=== PATIENT | male | born 1970 | race Caucasian/White ===

== ENCOUNTER → 2018-06-10 | Outpatient (CLI) | payer OTHER ==
[~2018-06-10] MED LIST: ACET65TA OR; NORCO ANEXSIA PO
--- NOTE | 2018-06-10 13:55 | REP ---
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 Technique: Daniels scale and color Doppler evaluation using linear high frequency transducer Findings: Two-dimensional daniels scale and color images demonstrate age-related atheromatous plaquing along the common carotid arteries with normal laminar flow and no appreciable narrowing. Color Doppler interrogation demonstrates normal arterial wave patterns and velocities with no significant spectral broadening. Normal flow direction is appreciated in the bilateral vertebral arteries. RIGHT (cm/s) LEFT (cm/s) ICA peak systolic velocity 93.2 118.0 ICA diastolic velocity 27.3 21.2 ECA peak systolic velocity 94.6 118.0 CCA peak systolic velocity 118.0 112.0 ICA/CCA ratio 0.79 1.05 Impression: No hemodynamically significant areas of narrowing or stenosis appreciated. Based on set standards narrowing falls within the normal/less than 50% range. Electronically Signed by Rg Draper MD 06/10/2018 01:46 P
== END ==
LOC: M RAD 11:52
PROVIDERS: ATTEND Internal Medicine Cardiovascular Disease
DX: H34.233 Retinal artery branch occlusion, bilateral (principal)

== ENCOUNTER → 2018-07-10 | Outpatient (CLI) | payer OTHER ==
--- NOTE | 2018-07-10 09:48 | REP ---
Clinical: Pain. Technique: AP, lateral, bilateral oblique views of the right foot. Findings: Generalized age-related changes are appreciated including increased sclerosis and subtle cortical irregularity at the first MTP joint. No acute fracture dislocation. No subcutaneous emphysema or radiodense foreign body. Lateral view demonstrates small to moderate calcaneal heal spur. Impression: Generalized age-related changes as noted above. No acute fracture or dislocation. Electronically Signed by Rg Draper MD 07/10/2018 09:40 A
--- NOTE | 2018-07-10 11:40 | REP ---
Clinical: Heel pain. Technique: AP and lateral views of the right calcaneus. Findings: No acute fracture. Joint spaces are normal. Lateral view demonstrates moderate calcaneal heal spur and calcifications along the insertion of the Achilles tendon. Impression: No acute fracture. As above. Electronically Signed by Rg Draper MD 07/10/2018 09:39 A
== END ==
LOC: M WUC 09:16
PROVIDERS: ATTEND Physician Assistant
DX: M79.671 Pain in right foot (principal)

== ENCOUNTER 2019-07-07 14:54 | Emergency (ER) | payer BC, OTHER ==
[~2019-07-07] VITALS: Ht 167.6 cm; Wt 104.1 kg
[2019-07-07] MEDS ORDERED: RAMI1CAP24 (15:02)
[2019-07-07] MEDS ORDERED: ROSU20TA5 (15:02)
[2019-07-07] MEDS ORDERED: METF-791 (15:02)
[2019-07-07 15:36] LABS: BASO % 0.5 % (0.0-1.0); EOS # 0.1 10^3/uL (0.0-0.5); EOS % 2.8 % (0.0-3.0); HEMATOCRIT 44.7 % (42.0-52.0); HEMOGLOBIN 15.2 g/dl (13.5-17.5); LYMPH # 1.3 10^3/uL (1.5-5.0); LYMPH % 31.6 % (24.0-44.0); MEAN CORPUSCULAR HEMOGLOBIN 30.6 pg (27.0-33.0); MEAN CORPUSCULAR VOLUME 89.9 fl (80.0-96.0); MONO # 0.5 10^3/uL (0.0-0.8); MONO % 12.3 % (0.0-5.0); NEUTROPHILS # 2.1 10^3/uL (1.5-8.5); NEUTROPHILS % 52.5 % (36.0-66.0); PLATELET COUNT, AUTOMATED 215 10^3/uL (150-450); RED BLOOD COUNT 4.97 10^6/uL (4.30-6.10)
[2019-07-07 16:00] LABS: ALBUMIN 4.3 GM/DL (3.2-5.2); ALT/SGPT 63 U/L (12-78); BILIRUBIN,DIRECT 0.2 MG/DL (0.0-0.2); BILIRUBIN,TOTAL 0.8 MG/DL (0.2-1.0); BLOOD UREA NITROGEN 10 MG/DL (7-18); CALCIUM LEVEL 9.4 MG/DL (8.5-10.1); CARBON DIOXIDE LEVEL 27 MEQ/L (21-32); CHLORIDE LEVEL 107 MEQ/L (98-107); CREATININE FOR GFR 0.95 MG/DL (0.70-1.30); GLOMERULAR FILTRATION RATE > 60.0 (>60); GLUCOSE, FASTING 123 MG/DL (70-100); LIPASE 110 U/L (73-393); POTASSIUM SERUM 3.9 MEQ/L (3.5-5.1); SODIUM LEVEL 138 MEQ/L (136-145); TOTAL PROTEIN 7.7 GM/DL (6.4-8.2)
[2019-07-07] MEDS ORDERED: ISOVUE-370 76% 100ML VIAL (Q9967) As Ordered ONE (16:04)
[2019-07-07] MEDS ORDERED: DICY10CA13 PO (17:44)
--- NOTE | 2019-07-07 17:46 | REP ---
CT abdomen and pelvis with IV but without oral contrast: History: Left lower quadrant pain. Rule out colitis versus diverticulitis. CT comparison study December 26, 2011. CT contrast dose: 100 mL of intravenous Isovue 370. CT findings: Preliminary digital field scout radiograph shows a normal bowel gas pattern. The lung bases are clear. There is no evidence of pleural effusion or ascites. There is moderate diffuse fatty infiltration of the liver. The spleen is normal in size and homogeneous in texture. There is a small accessory splenule. No abnormality is noted in the pancreas or the gallbladder. The adrenal glands have a normal appearance. The kidneys enhance symmetrically and show no evidence of hydronephrosis or mass. There is a peripheral cyst in the lower pole of the left kidney laterally measuring 12 mm in greatest diameter. No retroperitoneal mass or adenopathy is seen. Normal caliber aorta is noted. The patient is status post appendectomy. There is no CT evidence of diverticulitis or diverticulosis. Prostate, seminal vesicles, and urinary bladder are unremarkable. Impression: Moderate diffuse fatty infiltration of the liver. Small left renal cyst. Post appendectomy. Otherwise negative CT abdomen and pelvis. Electronically Signed by Wilver Mustafa MD 07/07/2019 06:21 P
[2019-07-07 17:59] VITALS: BP 133/94
== END 2019-07-07 18:16 | disposition home or self-care (01) ==
LOC: M ED 14:54
DX: R19.7 Diarrhea, unspecified (principal); R10.32 Left lower quadrant pain; E11.9 Type 2 diabetes mellitus without complications; I10 Essential (primary) hypertension; E78.00 Pure hypercholesterolemia, unspecified; Z79.84 Long term (current) use of oral hypoglycemic drugs; Z79.899 Other long term (current) drug therapy
CPT/HCPCS: 36415; 74177; 80048; 80076; 81001; 83690; 85025; 99284; Q9967

== ENCOUNTER → 2022-06-05 | Outpatient (CLI) | payer BC ==
[~2022-06-05] MED LIST changes: +DICY10CA13 PO; +FARX1TAB5 PO; +LOSA50TA28 PO; +METF-838 PO; +RAMI1CAP24; +ROSU20TA5
== END ==
LOC: M LABSMTC 11:06
PROVIDERS: ATTEND Anesthesiology
DX: Z01.818 Encounter for other preprocedural examination (principal)

== ENCOUNTER 2022-06-08 07:39 | Day surgery (SDC) | payer BC ==
[~2022-06-08] VITALS: Ht 167.6 cm; Wt 99.4 kg
[~2022-06-08 07:39] MED LIST changes: +NS 1,000 ML IV ONE
[2022-06-08] MEDS ORDERED: LIDOCAINE 2% 100MG/5ML SDV (FOR ANES.) As Ordered ONE (08:27)
[2022-06-08] MEDS ORDERED: propofoL 200 MG/20 ML VIAL As Ordered ONE (08:27)
[2022-06-08 09:55] VITALS: BP 129/65
== END 2022-06-08 10:01 | disposition home or self-care (01) ==
LOC: M OPP 07:39
PROVIDERS: ATTEND Internal Medicine Gastroenterology
DX: Z12.11 Encounter for screening for malignant neoplasm of colon (principal); K64.4 Residual hemorrhoidal skin tags; K64.8 Other hemorrhoids; K57.30 Diverticulosis of large intestine without perforation or abscess without bleeding; Z79.02 Long term (current) use of antithrombotics/antiplatelets; Z79.811 Long term (current) use of aromatase inhibitors; Z79.84 Long term (current) use of oral hypoglycemic drugs; Z79.899 Other long term (current) drug therapy; E11.9 Type 2 diabetes mellitus without complications; I10 Essential (primary) hypertension; E78.00 Pure hypercholesterolemia, unspecified; Z87.891 Personal history of nicotine dependence; Z80.1 Family history of malignant neoplasm of trachea, bronchus and lung; Z80.42 Family history of malignant neoplasm of prostate

== ENCOUNTER → 2022-07-19 | Outpatient (CLI) | payer BC ==
[~2022-07-19] MED LIST changes: -NS 1,000 ML IV ONE
== END ==
LOC: M CARPUL 09:31
PROVIDERS: ATTEND Physician Assistant
DX: I35.1 Nonrheumatic aortic (valve) insufficiency (principal); I77.810 Thoracic aortic ectasia

== ENCOUNTER → 2023-04-04 | Outpatient (CLI) | payer BC ==
[~2023-04-04] MED LIST changes: +DICY-61 PO; -DICY10CA13 PO; -ROSU20TA5; +ROSU20TA61
== END ==
LOC: M SOG 08:39
PROVIDERS: ATTEND Physician Assistant
DX: M77.31 Calcaneal spur, right foot (principal); M25.571 Pain in right ankle and joints of right foot

== ENCOUNTER → 2023-04-26 | Outpatient (CLI) | payer BC | LOC: M RAD 06:34 | PROVIDERS: ATTEND Physician Assistant | DX: M25.571 Pain in right ankle and joints of right foot (principal); R93.6 Abnormal findings on diagnostic imaging of limbs ==